=== PATIENT | male | born 1975 | race Caucasian/White ===

== ENCOUNTER 2016-08-17 11:27 | Emergency (ER) | payer OTHER ==
--- NOTE | 2016-08-17 11:38 | CPEKG ---
Heart Rate: 106 RR Interval: 566 P-R Interval: 192 QRSD Interval: 88 QT Interval: 340 QTC Interval: 452 P Stanberry: 77 QRS Stanberry: 55 T Wave Stanberry: 46 EKG Severity - ABNORMAL ECG - EKG Impression: SINUS TACHYCARDIA EKG Impression: BIATRIAL ABNORMALITIES EKG Impression: ST ELEV, PROBABLE NORMAL EARLY REPOL PATTERN Electronically Signed By: James Ochoa 17-Aug-2016 14:34:52
--- NOTE | 2016-08-17 11:46 | EDPHY ---
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 Patient states he was sitting at his desk around 10:00 a.m. this morning when midsternal chest tightness started with an intermittent shortness of breath. Patient states it is not a pain it is a tightness or pressure non radiating, said he did feel little dizzy lightheaded at that moment, though symptoms have resolved. Patient at this time reports intermittent chest tightness no nausea vomiting no shortness of breath at this time. Patient also reports that 1 and half weeks ago he did have upper respiratory infection, symptoms have somewhat resolved. Normal activities yesterday he was mountain biking denies any chest pressure or shortness of breath at that time. Does not smoke no past medical history no meds does report 5-8 beers per week usually on the weekend denies any drugs REVIEW OF SYSTEMS: Constitutional: No fever, no chills. Eyes: No discharge. ENT: No sore throat. Cardiovascular: Chest pressure nonradiating, no palpitations. Respiratory: No cough. Intermittent shortness of breath. Gastrointestinal: No abdominal pain, no vomiting. Genitourinary: No hematuria. Musculoskeletal: No back pain. Skin: No rashes. Neurological: No headache. Lightheaded and dizziness which has resolved Source: Patient - Personal History Current Tetanus/Diphtheria Vaccine: Yes Current Tetanus Diphtheria and Acellular Pertussis (TDAP): Yes Tetanus Vaccine Date: < 10 years - Medical/Surgical History Hx Asthma: No Hx Chronic Respiratory Disease: No Hx Diabetes: No Hx Cardiac Disease: No Hx Renal Disease: No Hx Cirrhosis: No Hx Alcoholism: No Hx HIV/AIDS: No Hx Splenectomy or Spleen Trauma: No Other PMH: none reported - Social History Smoking Status: Never smoked - Physical Exam Exam: General Appearance: Alert, no distress. Eyes: Pupils equal and round no pallor or injection. ENT, Mouth: Mucous membranes moist. Respiratory: There are no retractions, lungs are clear to auscultation. Cardiovascular: Regular rate and rhythm. Gastrointestinal: Abdomen is soft and nontender, no masses, bowel sounds normal. Neurological: No focal deficits ambulatory without gait disturbance Skin: Warm and dry, no rashes. No pallor Musculoskeletal: Cervical vertebral and nontender on palpation, full range of motion Extremities: symmetrical, full range of motion. Psychiatric: Patient is oriented X 3, there is no agitation. Constitutional: Initial Vital Signs Temperature (C) 36.6 C 08/17/16 11:39 Heart Rate 106 H 08/17/16 11:39 Respiratory Rate 18 08/17/16 11:39 Blood Pressure 177/102 H 08/17/16 11:39 O2 Sat (%) 98 08/17/16 11:39 O2 Delivery Mode Room Air Allergies/Adverse Reactions: ciprofloxacin [From Cipro] Allergy (Verified 08/17/16 11:39) Home Medications: Medication Instructions Recorded NK [No Known Home Meds] 08/17/16 Medical Decision Making - Diagnostics Imaging Results: Imaging Impressions Chest X-Ray 08/17/16 11:43 Impression: Patchy atelectasis or infiltrate, right middle lobe.. ED Course/Re-evaluation: Discussed the plan of care: CBC, BMP, troponin, Mag, EKG, chest x-ray 1230: Discussed all results , No acute findings 1300: The discussed discharge instructions, follow up with primary care this week. Discharge home---> stable Differential Diagnosis: Other differential diagnosis considered but not limited to pneumonia, pleural effusion, and abnormal EKG - Data Points Laboratory Results: Laboratory Results 08/17/16 11:40 08/17/16 11:40 08/17/16 08/17/16 11:40 11:40 WBC 4.15 10^3/uL 10^3/uL (3.80-9.50) RBC 4.73 10^6/uL 10^6/uL (4.40-6.38) Hgb 15.1 g/dL g/dL (13.7-17.5) Hct 43.9 % % (40.0-51.0) MCV 92.8 fL fL (81.5-99.8) MCH 31.9 pg pg (27.9-34.1) MCHC 34.4 g/dL g/dL (32.4-36.7) RDW 12.1 % % (11.5-15.2) Plt Count 339 10^3/uL 10^3/uL (150-400) MPV 9.3 fL fL (8.7-11.7) Neut % (Auto) 50.4 % % (39.3-74.2) Lymph % (Auto) 31.8 % % (15.0-45.0) [place] % (Auto) 16.6 % H % (4.5-13.0) Eos % (Auto) 0.5 % L % (0.6-7.6) Baso % (Auto) 0.5 % % (0.3-1.7) Nucleat RBC Rel Count 0.0 % % (0.0-0.2) Absolute Neuts (auto) 2.09 10^3/uL 10^3/uL (1.70-6.50) Absolute Lymphs (auto) 1.32 10^3/uL 10^3/uL (1.00-3.00) Absolute Monos (auto) 0.69 10^3/uL 10^3/uL (0.30-0.80) Absolute Eos (auto) 0.02 10^3/uL L 10^3/uL (0.03-0.40) Absolute Basos (auto) 0.02 10^3/uL 10^3/uL (0.02-0.10) Absolute Nucleated RBC 0.00 10^3/uL 10^3/uL (0-0.01) Immature Gran % 0.2 % % (0.0-1.1) Immature Gran # 0.01 10^3/uL 10^3/uL (0.00-0.10) Sodium 135 mEq/L mEq/L (134-144) Potassium 4.3 mEq/L mEq/L (3.5-5.2) Chloride 100 mEq/L mEq/L (97-110) Carbon Dioxide 25 mEq/l mEq/l (22-31) Anion Gap 10 mEq/L mEq/L (8-16) BUN 17 mg/dL mg/dL (7-23) Creatinine 0.8 mg/dL mg/dL (0.7-1.3) Estimated GFR > 60 Glucose 124 mg/dL H mg/dL (70-100) Calcium 9.9 mg/dL mg/dL (8.5-10.4) Magnesium 1.6 mg/dL mg/dL (1.6-2.3) Troponin I < 0.012 ng/mL ng/mL (0-0.034) Departure - Departure Disposition: Home, Routine, Self-Care Clinical Impression: Chest pain of unknown etiology Condition: Good Instructions: Chest Pain (ED), Thoracic Pain (ED) Additional Instructions: The discussed discharge instructions 1. Decrease any strenuous activity for the next few days 2. I would recommend no caffeine or alcohol this week 3. Follow up with your primary care provider this week 4. If any symptoms worsen or reoccur with chest pain or shortness of breath return to the emergency department Referrals: Noble Montague MD [Primary Care Provider] - As per Instructions
[2016-08-17 11:48] LABS: % IMMATURE GRANULYOCYTES 0.2 % (0.0-1.1); ABSOLUTE IMMATURE GRANULOCYTES 0.01 10^3/uL (0.00-0.10); ADD DIFF? NO; ADD MORPH? NO; ADD SCAN? NO; ATYPICAL LYMPHOCYTE FLAG 40 (0-99); FRAGMENT RBC FLAG 0 (0-99); HEMATOCRIT 43.9 % (40.0-51.0); HEMOGLOBIN 15.1 g/dL (13.7-17.5); LEFT SHIFT FLG 0 (0-99); LIPEMIA HEMOLYSIS FLAG 90 (0-99); MEAN CELL HEMOGLOBIN 31.9 pg (27.9-34.1); MEAN CELL HEMOGLOBIN CONCENTR. 34.4 g/dL (32.4-36.7); MEAN CELL VOLUME 92.8 fL (81.5-99.8); MEAN PLATELET VOLUME 9.3 fL (8.7-11.7); PLATELET CLUMPS FLAG 10 (0-99); PLATELET COUNT 339 10^3/uL (150-400); RED BLOOD CELL COUNT 4.73 10^6/uL (4.40-6.38); RED CELL DISTRIBUTION WIDTH 12.1 % (11.5-15.2)
[2016-08-17 12:03] LABS: ANION GAP 10 mEq/L (8-16); CALCIUM 9.9 mg/dL (8.5-10.4); CARBON DIOXIDE 25 mEq/l (22-31); CHLORIDE 100 mEq/L (97-110); CREATININE 0.8 mg/dL (0.7-1.3); GLOMERULAR FILTRATION RATE > 60; GLUCOSE 124 mg/dL (70-100); MAGNESIUM 1.6 mg/dL (1.6-2.3); POTASSIUM 4.3 mEq/L (3.5-5.2); SODIUM 135 mEq/L (134-144)
[2016-08-17 12:14] LABS: TROPONIN I < 0.012 ng/mL (0-0.034)
[2016-08-17 13:08] VITALS: BP 134/84; PULSE 80; RESP 14; TEMP 97.9; O2SAT 92
== END 2016-08-17 13:08 | disposition home or self-care (01) ==
DX: R07.89 Other chest pain (principal)